=== PATIENT | female | born 1985 | race Caucasian/White ===

== ENCOUNTER → 2021-08-14 | Outpatient (CLI) | payer BC | LOC: MRI 13:00 | DX: M79.671 Pain in right foot (principal) | CPT/HCPCS: 73721 ==

== ENCOUNTER → 2021-09-27 | Outpatient (CLI) | payer BC | LOC: KOH-I 15:57 | DX: M25.511 Pain in right shoulder (principal) | CPT/HCPCS: 73030 ==